=== PATIENT | male | born 1955 | race Caucasian/White ===

== ENCOUNTER 2017-02-15 06:32 | Emergency (ER) | payer MEDICAID ==
[2017-02-15 06:41] VITALS: TEMP 97.8
[2017-02-15] MEDS ORDERED: Albuterol-Ipratrop 3 mg / 0.5 (3 ml) UD ONE ×2 (06:57→08:10)
--- NOTE | 2017-02-15 07:57 | C.PDOC ---
History Of Present Illness 61 year old male patient presents to the ED complaining of a dry cough and nasal congestion for the past week. Patient state he thinks he has seasonal allergies. When he coughs, he feels short of breath. Patient denies fever or chest pain, no sob when not coughing. Time Seen by Provider: 02/15/17 07:20 Chief Complaint (Nursing): Cough, Cold, Congestion History Per: Patient History/Exam Limitations: no limitations Onset/Duration Of Symptoms: Other (1 week) Current Symptoms Are (Timing): Still Present Sick Contacts (Context): None Associated Symptoms: Cough, Nasal Congestion Ear Symptoms: Bilateral: None Severity: Mild Pain Scale Rating Of: 3 Recent travel outside of the [place]: No Past Medical History Reviewed: Historical Data, Nursing Documentation, Vital Signs Vital Signs: Last Vital Signs Temp 97.8 F 02/15/17 06:40 Pulse 89 02/15/17 10:16 Resp 18 02/15/17 10:16 BP 128/74 02/15/17 10:16 Pulse Ox 95 02/15/17 12:25 Family History: States: Unknown Family Hx - Social History Hx Tobacco Use: No Hx Alcohol Use: Yes (SOC.) Hx Substance Use: No - Immunization History Hx Tetanus Toxoid Vaccination: No Hx Influenza Vaccination: No Hx Pneumococcal Vaccination: No Review Of Systems Except As Marked, All Systems Reviewed And Found Negative. Constitutional: Negative for: Fever ENT: Positive for: Nose Congestion Cardiovascular: Negative for: Chest Pain Respiratory: Positive for: Cough, Shortness of Breath (associated with cough) Physical Exam - Physical Exam Appears: Non-toxic, No Acute Distress Skin: Warm, Dry Head: Atraumatic, Normacephalic Eye(s): bilateral: Normal Inspection Ear(s): Bilateral: Normal Nose: Normal Oral Mucosa: Moist Tongue: Normal Appearing Lips: Normal Appearing Throat: Normal, No Erythema, No Exudate Neck: Normal ROM, Supple Lymphatic: Normal Exam Chest: Symmetrical Cardiovascular: Rhythm Regular Respiratory: No Rales, No Rhonchi, Wheezing (mild; bilaterally) Gastrointestinal/Abdominal: Normal Exam, Soft, No Tenderness Back: Normal Inspection, No CVA Tenderness Extremity: Normal ROM Neurological/Psych: Oriented x3, Normal Speech Gait: Steady ED Course And Treatment O2 Sat by Pulse Oximetry: 95 (RA) Pulse Ox Interpretation: Normal - Radiology CXR: Interpreted by Me, Viewed By Me CXR Interpretation: Yes: No Acute Disease Progress Note: Plan: Chest x-ray, Duoneb, Prednisone. Upon reassessment, patient's symptoms have resolved and he is feeling good, requests to be d/c home. Patient is resting comfortably with no wheezing, chest pain, or retractions. Patient is alert and oriented x 3. Patient was advised to follow up with physician in 1-2 days. Return if symptoms worsen/persist. Reassessment Condition: Improved Disposition Counseled Patient/Family Regarding: Studies Performed, Diagnosis, Need For Followup - Disposition Referrals: [facility] [Outside] [facility] [Outside] Disposition: HOME/ ROUTINE Disposition Time: 09:52 Condition: STABLE Additional Instructions: FOLLOW UP WITH PMD/CLINIC IN 1-2 DAYS FOR RE-EVALUATION. IF SYMPTOMS GET WORSE OR ANY NEW CONCERNING SYMPTOMS DEVELOP RETURN TO ED. Prescriptions: Loratadine/Pseudoephedrine [Claritin-D 24 Hour Tablet] 1 each PO BID PRN #30 tab PRN Reason: Nasal Congestion Methylprednisolone [Medrol Dose Pack (21 tabs)] 4 mg PO DAILY #21 mg Albuterol HFA [Ventolin HFA 90 mcg/actuation (8 g)] 2 puff IH Q4H PRN #1 bottle PRN Reason: Cough Instructions: Reactive Airways Disease (ED) Forms: Gen Discharge Inst Slovenian Print Language: THAI - Clinical Impression Clinical Impression: Reactive airway disease with wheezing - PA / [employer] WORKER / Resident Statement MD/DO has reviewed & agrees with the documentation as recorded. - Scribe Statement The provider has reviewed the documentation as recorded by the Scribe Yasmin Stock All medical record entries made by the Scribe were at my direction and personally dictated by me. I have reviewed the chart and agree that the record accurately reflects my personal performance of the history, physical exam, medical decision making, and the department course for this patient. I have also personally directed, reviewed, and agree with the discharge instructions and disposition.
[2017-02-15] MEDS: Albuterol-Ipratrop 3 mg / 0.5 (3 ml) UD IH SCH ×3 (08:00→08:41)
[2017-02-15 10:17] VITALS: BP 128/74; PULSE 89; RESP 18
[2017-02-15 10:55] VITALS: O2SAT 95
--- NOTE | 2017-02-15 11:15 | RAD ---
HISTORY: cough COMPARISON: No prior. TECHNIQUE: Chest PA and lateral FINDINGS: LUNGS: Biapical pleural thickening. No focal infiltrate or effusion. PLEURA: No significant pleural effusion identified. No pneumothorax apparent. CARDIOVASCULAR: Normal. OSSEOUS STRUCTURES: No significant abnormalities. VISUALIZED UPPER ABDOMEN: Normal. OTHER FINDINGS: None. IMPRESSION: Biapical pleural thickening. No focal infiltrate or effusion.
== END 2017-02-15 10:17 | disposition home or self-care (01) ==
LOC: C.ER 06:32
DX: J98.9 Respiratory disorder, unspecified (principal)

== ENCOUNTER 2017-10-04 03:23 | Emergency (ER) | payer MEDICAID ==
[2017-10-04 03:35] VITALS: RESP 18
--- NOTE | 2017-10-04 03:49 | C.PDOC ---
History Of Present Illness Patient presents to ED with dry hacking cough associated with headache that began 3 days ago. Patient denies fever, nausea, vomiting, or diarrhea. Time Seen by Provider: 10/04/17 03:48 Chief Complaint (Nursing): Cough, Cold, Congestion History Per: Patient History/Exam Limitations: no limitations Onset/Duration Of Symptoms: Days (3) Current Symptoms Are (Timing): Still Present Severity: Mild Pain Scale Rating Of: 3 Recent travel outside of the [place]: No Additional History Per: Family Past Medical History Reviewed: Historical Data, Nursing Documentation, Vital Signs Vital Signs: Last Vital Signs Temp 98.7 F 10/04/17 03:31 Pulse 83 10/04/17 03:31 Resp 18 10/04/17 03:31 BP 135/73 10/04/17 03:31 Pulse Ox 98 10/04/17 04:26 - Medical History PMH: HTN, Hypercholesterolemia Surgical History: No Surg Hx Family History: States: No Known Family Hx - Social History Hx Tobacco Use: No Hx Alcohol Use: Yes (SOC.) Hx Substance Use: No - Immunization History Hx Tetanus Toxoid Vaccination: No Hx Influenza Vaccination: No Hx Pneumococcal Vaccination: No Review Of Systems Constitutional: Negative for: Fever, Chills Eyes: Negative for: Redness ENT: Negative for: Nose Discharge, Nose Congestion, Throat Swelling Cardiovascular: Negative for: Chest Pain Respiratory: Positive for: Cough (hacking) Gastrointestinal: Negative for: Nausea, Vomiting Skin: Negative for: Rash Neurological: Positive for: Headache. Negative for: Weakness, Numbness Psych: Negative for: Depression, Suicidal ideation Physical Exam - Physical Exam Appears: Non-toxic, No Acute Distress Skin: Warm, Dry Head: Normacephalic Eye(s): bilateral: Normal Inspection Ear(s): Bilateral: Normal Nose: Normal, No Discharge Oral Mucosa: Moist Throat: Normal (oropharynx clear), No Erythema, No Exudate Neck: Supple Chest: Symmetrical, No Tenderness Cardiovascular: Rhythm Regular Respiratory: No Rales, Rhonchi (Scattered), No Wheezing Gastrointestinal/Abdominal: Soft, No Tenderness, No Distention Neurological/Psych: Oriented x3, Normal Speech, Normal Cognition Gait: Steady ED Course And Treatment O2 Sat by Pulse Oximetry: 98 (Room air) Pulse Ox Interpretation: Normal - Radiology CXR: Interpreted by Me, Viewed By Me CXR Interpretation: No: Infiltrates, Fracture, Pnemothorax Progress Note: Administered Motrin and Phenergan/Codenine oral syrup. Ordered CXR and flu swab. Reevaluation Time: 05:06 Reassessment Condition: Improved Disposition Counseled Patient/Family Regarding: Studies Performed, Diagnosis, Need For Followup, Rx Given - Disposition Referrals: Salty Leung MD [Staff Provider] - Disposition: HOME/ ROUTINE Disposition Time: 03:49 Condition: FAIR Prescriptions: Azithromycin [Zithromax Tri-Riky] 500 mg PO DAILY #3 tablet Promethazine/Codeine [Codeine/Promethazine 10 MG/5 Ml-6.25 MG/5 Ml] 5 ml PO QID PRN #150 udc PRN Reason: Cough Instructions: Upper Respiratory Infection (ED) Forms: [employer] [facility] (Hungarian) - Clinical Impression Clinical Impression: Upper respiratory infection - Scribe Statement The provider has reviewed the documentation as recorded by the Scribe Jorge L Lainez All medical record entries made by the Scribe were at my direction and personally dictated by me. I have reviewed the chart and agree that the record accurately reflects my personal performance of the history, physical exam, medical decision making, and the department course for this patient. I have also personally directed, reviewed, and agree with the discharge instructions and disposition.
[2017-10-04] MEDS ORDERED: Promethazine/Cod 6.25mg-10mg/5ml Syr UD PO STA (03:54)
[2017-10-04] MEDS ORDERED: Promethazine/Cod 6.25mg-10mg/5ml Syr UD ONE (04:02)
[2017-10-04 05:21] VITALS: BP 150/85; PULSE 71; TEMP 99; O2SAT 95
--- NOTE | 2017-10-04 08:23 | RAD ---
HISTORY: cough COMPARISON: Comparison is made with 02/15/2017 TECHNIQUE: Chest PA and lateral FINDINGS: LUNGS: No significant interval change in the lungs noted since the previous exam. PLEURA: No significant pleural effusion identified. No pneumothorax apparent. CARDIOVASCULAR: Normal. OSSEOUS STRUCTURES: No significant abnormalities. VISUALIZED UPPER ABDOMEN: Normal. OTHER FINDINGS: None. IMPRESSION: No radiographic evidence of pneumonia
== END 2017-10-04 05:28 | disposition home or self-care (01) ==
LOC: C.ER 03:23
DX: J06.9 Acute upper respiratory infection, unspecified (principal)

== ENCOUNTER 2018-04-06 08:12 | Emergency (ER) | payer MEDICAID ==
[2018-04-06 08:19] VITALS: RESP 18
[2018-04-06] MEDS ORDERED: Albuterol-Ipratrop 3 mg / 0.5 (3 ml) UD INH STA ×2 (08:23→09:38)
[2018-04-06 08:56] LABS: BASO # 0.1 K/uL (0.0-0.2); BASO % 1.3 % (0.0-2.0); EOS # 0.4 K/uL (0.0-0.7); EOS % 7.6 % (0.0-4.0); LYMPH # 1.5 K/uL (1.0-4.3); LYMPH % 27.2 % (20.0-40.0); MEAN CELL VOLUME 87.1 fL (80.0-94.0); MEAN CORPUSCULAR HEMOGLOBIN 29.1 pg (27.0-31.0); MEAN CORPUSCULAR HGB CONC 33.4 g/dL (33.0-37.0); MEAN PLATELET VOLUME 8.5 fL (7.2-11.7); MONO # 0.5 K/uL (0.0-0.8); MONO % 10.2 % (0.0-10.0); NEUT # 2.9 K/uL (1.8-7.0); NEUT % 53.7 % (50.0-75.0); NRBC % 0.1 % (0.0-2.0); RBC 4.47 Mil/uL (4.40-5.90); RED CELL DISTRIBUTION WIDTH 13.1 % (11.5-14.5); WHITE BLOOD COUNT 5.3 K/uL (4.8-10.8)
[2018-04-06] MEDS ORDERED: Albuterol-Ipratrop 3 mg / 0.5 (3 ml) UD ONE ×2 (08:59→09:04)
[2018-04-06 09:09] LABS: ALB/GLOB RATIO 1.7 (1.0-2.1); ALBUMIN 4.5 g/dL (3.5-5.0); ALT/SGPT 44 U/L (21-72); AST/SGOT 40 U/L (17-59); BLOOD UREA NITROGEN 20 mg/dL (9-20); CALCIUM 9.3 mg/dl (8.6-10.4); GFR AFRICAN-AMERICAN > 60; GFR NON-AFRICAN AMERICAN > 60
--- NOTE | 2018-04-06 09:10 | RAD ---
Date of service: 04/06/2018 HISTORY: SOB COMPARISON: 10/04/2017 and 02/15/2017 TECHNIQUE: Chest PA and lateral FINDINGS: LUNGS: No consolidation. An approximately 12 mm nodular opacity projects over the left mid to lower lung zone. No similarly dense are similarly sized definitive contralateral right nipple shadow here is seen. A much fainter slightly smaller right nipple shadow may be present. Its convincing presence on multiple prior studies is not appreciated. PLEURA: No significant pleural effusion identified. No pneumothorax apparent. CARDIOVASCULAR: Normal. OSSEOUS STRUCTURES: Thoracic spondylosis VISUALIZED UPPER ABDOMEN: Normal. OTHER FINDINGS: None. IMPRESSION: Left lung nodular opacity -indeterminate a pulmonary nodule (versus unusually prominent nipple shadow -) are some considerations. This particular case a noncontrast CT chest exam is recommended for further evaluation. Comments: Findings were dcalled in to the ER and directly discussed with the Octavia DASH on 04/06/2018 at 9:06 a.m.
[2018-04-06 09:20] LABS: B-TYPE NATRIURETIC PEPTIDE 19.9 pg/mL (0-900)
--- NOTE | 2018-04-06 10:26 | CT ---
Date of service: 04/06/2018 PROCEDURE: CT Chest without contrast HISTORY: abn. cxr COMPARISON: None. TECHNIQUE: Contiguous axial images were obtained through the chest without intravenous contrast enhancement. Sagittal and coronal reconstructions were performed. Radiation dose (DLP): 623.2 mGy-cm. This CT exam was performed using one or more of the following dose reduction techniques: Automated exposure control, adjustment of the mA and/or kV according to patient size, and/or use of iterative reconstruction technique. FINDINGS: LUNGS: Clear lungs. Visualized airway clear. MEDIASTINUM: Unremarkable thoracic aorta. No aneurysm. Normal sized heart. Main pulmonary artery unremarkable. No vascular congestion. No lymphadenopathy. PLEURA: No pleural fluid. No pneumothorax. BONES: No fracture. No destructive lesion. UPPER ABDOMEN: Grossly unremarkable. OTHER FINDINGS: None. IMPRESSION: No evidence of suspicious nodule or mass in the lungs. No evidence of acute pathology in the lungs.
--- NOTE | 2018-04-06 10:55 | C.PDOC ---
History Of Present Illness 62-year-old male, PMHx includes Hypertension, presents to the emergency department with complaints of shortness of breath. 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 He admits to a mild associated cough. Denies chest pain, fever, chills, or any other associated symptoms. No other complaints at this time. Chief Complaint (Nursing): Cough, Cold, Congestion History Per: Patient History/Exam Limitations: no limitations Past Medical History Reviewed: Historical Data, Nursing Documentation, Vital Signs Vital Signs: Last Vital Signs Temp 98.5 F 04/06/18 08:15 Pulse 78 04/06/18 08:15 Resp 18 04/06/18 08:15 BP 150/91 H 04/06/18 08:15 Pulse Ox 96 04/06/18 11:06 - Medical History PMH: HTN, Hypercholesterolemia Family History: States: No Known Family Hx - Social History Hx Tobacco Use: No Hx Alcohol Use: Yes Hx Substance Use: No - Immunization History Hx Tetanus Toxoid Vaccination: No Hx Influenza Vaccination: Yes Hx Pneumococcal Vaccination: No Review Of Systems Constitutional: Negative for: Fever, Chills Cardiovascular: Negative for: Chest Pain, Palpitations, Edema, Light Headedness Respiratory: Positive for: Cough, Shortness of Breath Gastrointestinal: Negative for: Nausea, Vomiting Genitourinary: Negative for: Dysuria Musculoskeletal: Negative for: Back Pain Neurological: Negative for: Weakness, Headache, Dizziness Physical Exam - Physical Exam Appears: Non-toxic, No Acute Distress Skin: Normal Color, Warm, Dry, No Rash Head: Atraumatic, Normacephalic Eye(s): bilateral: Normal Inspection, PERRL, EOMI Nose: Normal Oral Mucosa: Moist Lips: Normal Appearing Neck: Normal ROM Cardiovascular: Rhythm Regular, No Murmur Respiratory: Normal Breath Sounds, No Accessory Muscle Use Gastrointestinal/Abdominal: Soft, No Tenderness Back: Normal Inspection Extremity: Normal ROM, No Deformity, No Swelling Neurological/Psych: Oriented x3, Normal Speech ED Course And Treatment - Laboratory Results Result Diagrams: 04/06/18 08:48 04/06/18 08:48 ECG: Interpreted By Me, Viewed By Me ECG Rhythm: Sinus Rhythm ECG Interpretation: No Acute Changes Rate From EC O2 Sat by Pulse Oximetry: 96 (RA) Pulse Ox Interpretation: Normal Medical Decision Making Medical Decision Making: Plan: * CT Chest * EKG * Bloodwork * Chest X-Ray * Duoneb x2, Zithromax * Peak Flow * Reassess and Disposition * * bronchitis - patient states improvement. Will discharge home to follow up with pmd in 2 days. Patient advised to call family doctor for immediate follow up. Disposition Counseled Patient/Family Regarding: Studies Performed, Diagnosis, Need For Followup, Rx Given - Disposition Referrals: Salty Leung MD [Staff Provider] - Disposition: HOME/ ROUTINE Disposition Time: 11:07 Condition: STABLE Additional Instructions: follow up with your doctor in 2 days call to make an appointment take medications as prescribed return to ER if symptoms worsens or progress Prescriptions: Albuterol HFA [Ventolin HFA 90 mcg/actuation (8 g)] 2 puff IH [id number] #1 puff Azithromycin [Zithromax] 250 mg PO DAILY #4 tab predniSONE [predniSONE Tab] 50 mg PO DAILY #4 tab Instructions: Acute Bronchitis Forms: [facility] (Lao), General Discharge Instructions - Clinical Impression Clinical Impression: Bronchitis - Scribe Statement The provider has reviewed the documentation as recorded by the Scribe (Mary Ann Lindsay) All medical record entries made by the Scribe were at my direction and personally dictated by me. I have reviewed the chart and agree that the record accurately reflects my personal performance of the history, physical exam, medical decision making, and the department course for this patient. I have also personally directed, reviewed, and agree with the discharge instructions and disposition.
[2018-04-06 11:29] VITALS: BP 140/72; PULSE 77; TEMP 98.4; O2SAT 97
--- NOTE | 2018-04-08 12:41 | CARD ---
APPROVED REPORT Date of service: 04/06/2018 EKG Measurement Heart [id number] <Conclusion> Normal sinus rhythm Normal ECG
== END 2018-04-06 11:45 | disposition home or self-care (01) ==
LOC: C.ER 08:12
DX: J40 Bronchitis, not specified as acute or chronic (principal); I10 Essential (primary) hypertension; E78.00 Pure hypercholesterolemia, unspecified